=== PATIENT | male | born 1970 | race Hispanic/Latino ===

== ENCOUNTER 2022-11-23 02:58 | Emergency (ER) | payer BC ==
[2022-11-23] MEDS ORDERED: Acetaminophen 500 MG TAB ONE (03:16)
[2022-11-23] MEDS ORDERED: Ketorolac Tromethamine 30 MG/ML VIAL ONE (03:16)
[2022-11-23] MEDS ORDERED: Ondansetron PF 4 MG/2 ML Vial ONE (03:30)
[2022-11-23 03:34] LABS: #Eosinphils 0.2 10x3/uL (0.0-0.5); #Monocytes 0.8 10x3/uL (0.0-1.1); #Neutrophils 6.8 10x3/uL (1.5-8.4); %Basophils 0.3 % (0.0-2.0); %Eosinophils 2.3 % (0.0-6.0); %Lymphocytes 15.6 % (18.0-47.0); %Monocytes 8.9 % (0.0-10.0); %Neutrophils 72.7 % (40.0-75.0); Mean Corpuscular HGB CONC 37.1 g/dL (32.0-36.0); Mean Corpuscular Hemoglobin 31.3 pg (27.0-33.0); Mean Corpuscular Volume 84.2 fl (81.2-95.1); Mean Platelet Volume 9.1 fl (7.4-10.4); Platelet Count 286 10x3/uL (150-450); RBC Distribution Width 11.9 % (11.5-14.5); Red Blood Cell (RBC) Count 4.48 10x6/uL (4.32-5.72); White Blood Cell (WBC) Count 9.3 10x3/uL (3.5-10.5)
[2022-11-23] MEDS ORDERED: Ventolin HFA Inhaler 60 PUFF INHALER ONE (03:41)
[2022-11-23 03:56] LABS: ALT (SGPT) 17 U/L (8-55); AST (SGOT) 20 U/L (5-34); Albumin 3.5 g/dL (3.5-5.0); Alkaline Phosphatase 112 U/L (40-110); Anion Gap 16 mmol/L (10-20); BUN (Urea Nitrogen) 13 mg/dL (8.9-20.6); Bilirubin, Total 0.3 mg/dL (0.2-1.2); Calc. Creatinine Clearance 0 mL/min (70-130); Calcium 8.8 mg/dL (7.8-10.44); Carbon Dioxide 20 mmol/L (22-29); Chloride 100 mmol/L (98-107); Estimated GFR 74; Globulin 3.2 g/dL (2.4-3.5); Glucose 174 mg/dL (70-105); Potassium 3.8 mmol/L (3.5-5.1); Protein, Total 6.7 g/dL (6.0-8.3); Sodium 132 mmol/L (136-145)
[2022-11-23 04:00] LABS: SARS-CoV-2 NAA Rapid Test Not Detected (NotDetected)
== END 2022-11-23 04:17 | disposition home or self-care (01) ==
LOC: CSHERS 02:58
DX: J06.9 Acute upper respiratory infection, unspecified (principal); I10 Essential (primary) hypertension; Z20.822 Contact with and (suspected) exposure to COVID-19; E78.00 Pure hypercholesterolemia, unspecified; Z79.899 Other long term (current) drug therapy
CPT/HCPCS: 71045; 80053; 83880; 84484; 85025; 93005; 96374; 96375; J1885; J2405